=== PATIENT | female | born 1995 ===

== ENCOUNTER 2023-07-01 12:48 | Outpatient (AMB) | payer BC, SELFPAY ==
--- NOTE | 2023-07-01 12:58 | MHC.PC.OV ---
Vital Signs 07/01/23 13:00 Height 5 ft 10 in Weight 156 lb 8 oz BMI 22.5 BP 110/66 Blood Pressure Location Rt brachial Position Sitting Pulse 97 Pulse Source Pulse Oximeter Pulse Oximetry (%) 99 Oxygen Delivery Method Room Air Intake Visit Reasons: Surveillance Analyst Chronic Care F/U ( Allergy Medication) Intake Note: Patient is a new patient here to establish care for Auto immune disease, Atomic disfunction, Chronic Hives, Anxiety and Depress, . Transferring care from Dr Purnima Conde ([place], [place]). Medical records have been requested and have not received. Personal Computer Network Analyst Required: No License Examiner: Not Required per policy Accompanied by: Self / Same As Patient Allergies amoxicillin Allergy (Intermediate, Verified 07/01/23 13:21) Hives Medication List - Last Reconciled 07/01/23 by MATTEO Eid bupropion HCl (Wellbutrin XL) 300 mg PO QAM cetirizine (Zyrtec) 10 mg PO BID PRN famotidine (Pepcid) 20 mg PO BID sertraline 75 mg PO DAILY Tobacco use date assessed: 07/01/23 Dental Screening Dental Screen Date: 07/01/23 Did you have a dental visit in the last 12 months?: No Did you have a dental problem in the last 6 months where you did not have access to dental care?: No Was dental information given to patient?: No (not yet just moved to [facility]) HPI HPI Comments History of Present Illness Details 28-year-old female new patient presents today to establish care. Recently moved from [place] 1 month ago. Past medical history significant for so sjorgrens disease, autonomic dysfunction, anxiety, depression and chronic uticaria Autoimmune disease: + LUCY 1 year ago, refereed to rheumatology, patient reports she had + lip punch biopsy and her simulation engineer was thinking she had sjorgres, patient states she was supposed to go for further testing however she was moving. 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 Autonomic dysfunction problem: DX 2 years ago, patient states used to pass out alot and, states had holter monitor, echocardiogram heart workup came back unremarkable. Peak patient was Recommended to follow high salt diet and increase water intake, compression stockings. Patient states only wears compression socks when working out. Patient reports previously followed by television news reporter Dr. Reddy for chronic hives, states she was recommended to take Zyrtec 10 mg b.i.d. daily as well as Pepcid 20 mg b.i.d.. Patient reports has been stable on this regimen and chronic hives have been well controlled. Referral entered to television news reporter. Anxiety/depression: Patient currently following with therapist as well as medication provider. [facility] Surgical History (Updated 07/01/23 @ 13:12 by NEO Lopez) History of wisdom tooth extraction Family History (Updated 07/01/23 @ 13:35 by MATTEO Eid) Father Fernie's disease Autoimmune urticaria Mother No problems noted. 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 1. Little interest or pleasure in doing things: not at all 2. Feeling down, depressed, or hopeless: not at all (currently on medication) 3. Trouble falling or staying asleep, or sleeping too much: not at all 4. Feeling tired or having little energy: not at all 5. Poor appetite or overeating: not at all 6. Feeling bad about yourself - or that you are a failure or have let yourself or your family down: not at all 7. Trouble concentrating on things, such as reading the newspaper or watching television: not at all 8. Moving or speaking so slowly that other people could have noticed. Or the opposite - being so fidgety or restless that you have been moving around a lot more than usual: not at all 9. Thoughts that you would be better off or of hurting yourself in some way: not at all Total score: 0 Depression Screening Interpretation: Negative 58792 - PHQ-9 Billing: Yes Source: Developed by Drs. Gage Dunn, Tae Ace and colleagues, with an educational evelin from [employer]. Thrive Questionnaire Date Thrive assessed: 07/01/23 I am a: Patient What is your living situation today?: I have a steady place to live Within the past 12 months, did the food you bought not last and you didn't have the money to get more?: Never true Within the past 12 months, did you worry whether your food would run out before you got money to buy more?: Never true Do you have trouble paying for medicines?: No Do you have trouble getting transportation to medical appointments?: No Do you have trouble paying your heating and electricity bill?: No Do you have trouble taking care of your child, family member or friend?: No Do you have trouble with day-to-day activities such as bathing, preparing meals, shopping, managing finances, etc.?: No Are you currently unemployed and looking for a job?: No Are you interested in more education?: No Currently or been in a relationship where the following occur: no concerns reported AUDIT C Alcohol Use Questionnaire (AUDIT-C) 1. How often do you have a drink containing alcohol?: Monthly or less Total Score: 1 RADHA-7 AMB Questionnaire RADHA-7 Date RADHA - 7 assessed: 07/01/23 Feeling nervous, anxious, or on edge: 0 = Not at all (currently on medication) Not being able to stop or control worryin = Not at all Worrying too much about different things: 0 = Not at all Trouble relaxin = Not at all Being so restless that it is hard to sit still: 0 = Not at all Becoming easily annoyed or irritable: 0 = Not at all Feeling afraid as if something awful might happen: 0 = Not at all Total RADHA-7 score (0-4 normal; 5-9 mild; 10-14 moderate; 15-21 severe): 0 Source: Developed by Drs. Gage Dunn, Tae Ace and colleagues, with an educational evelin from [employer]. RADHA-7 Assessment Billing RADHA-7 Assessment Tool: RADHA-7 Assessment 55290 Review of Systems Const Denies chills, Denies fatigue, Denies fever(s) and Denies poor appetite Eyes Denies no additional complaints ENT Reports Normal hearing present Card Denies chest pain, Denies syncope, Denies rapid heart rate and Denies dyspnea Resp Denies cough and Denies dyspnea GI Denies change in stool character, Denies constipation, Denies diarrhea, Denies nausea and Denies vomiting Denies urinary frequency, Denies dysuria and Denies urinary urgency Neuro Reports Normal hearing present, Denies confusion and Denies syncope Psych Denies confusion Endo Denies fatigue Physical exam (Primary Care) Vital Signs: Last Vital Signs Pulse 97 07/01/23 13:00 BP 110/66 07/01/23 13:00 Pulse Ox 99 07/01/23 13:00 Oxygen Delivery Method Room Air 07/01/23 13:00 BMI result Body Mass Index 22.5 Tobacco/Smoking Status: Tobacco use Status Tobacco use date assessed 07/01/23 07/01/23 13:15 Patient Tobacco Use Status Never used Tobacco 07/01/23 13:35 e-Cigarette/Vaping Use Never Used 07/01/23 13:35 PHQ-9: PHQ-9 Score PHQ-9: Total score 0 07/01/23 13:36 Depression Screening Interpretation: Negative Thrive Assessment: Date of Thrive Assessment Date Thrive assessed 07/01/23 07/01/23 13:15 Currently or been in a relationship where the following occur: no concerns reported Const General: No confusion Orientation/consciousness: No confusion HENMT Head: Yes normocephalic and Yes atraumatic Eyes Conjunctivae: conjunctivae normal Chest Chest palpation & inspection: normal inspection of the chest Resp Effort & Inspection: normal respiratory effort Auscultation: clear to auscultation bilaterally, no crackles, no rhonchi and no wheezes Cardio Rate: regular rate Rhythm: regular rhythm Heart sounds: S1 normal heart sound present and S2 normal heart sound present GI Inspection: Yes normal to inspection Neuro General: No confusion Cranial nerves: Yes Normal hearing present Extrem General: No edema Assessment and Plan Assessment & Plan (1) Chronic urticaria: Code(s): L50.8 - Other urticaria Plan: Continue on Zyrtec and Pepcid. Referral placed to television news reporter. (2) Depression: Code(s): F32.A - Depression, unspecified Plan: Continue to follow with therapist and medication provider Continue on Wellbutrin 300 mg q.a.m. and sertraline 75 mg daily. (3) Anxiety: Code(s): F41.9 - Anxiety disorder, unspecified Plan: Continue to follow with psychiatrist and therapist. (4) Hx of Sjogren's disease: Code(s): M35.00 - Sjogren syndrome, unspecified Plan: Referral placed to rheumatology. (5) Autonomic dysfunction: Code(s): G90.9 - Disorder of the autonomic nervous system, unspecified Plan: Continue to follow high salt diet and increase water intake. Continue wear compression stockings. Plan Follow-up in 3 months for complete physical exam. Orders: Orders Complete Blood Count Auto Diff 07/01/23 Z13.0 - Encounter for screening for diseases of the blood and blood-forming organs and certain disorders involving the immune mechanism Comprehensive Met. Panel 07/01/23 Z13.1 - Encounter for screening for diabetes mellitus Cholesterol 07/01/23 Z13.220 - Encounter for screening for lipoid disorders TSH reflex Free T4 07/01/23 Z13.29 - Encounter for screening for other suspected endocrine disorder Referrals Rheumatology Referral R76.8 - Other specified abnormal immunological findings in serum Allergy & Immunology Referral L50.8 - Other urticaria Coding Level of Care Code New Pt Level 4 (49989) Diagnoses Chronic urticaria L50.8 Depression F32.A Anxiety F41.9 Hx of Sjogren's disease M35.00 Autonomic dysfunction G90.9 Additional Codes RADHA-7 Assessment Billing - RADHA-7 Assessment Tool: RADHA-7 Assessment 77130 ([id number])
[2023-07-01 13:00] VITALS: BP 110/66; PULSE 97; O2SAT 99; BMI 22.5
== END 2023-07-01 13:46 | disposition home or self-care (01) ==
PROVIDERS: PCP Nurse Practitioner Family; Visit Provider Nurse Practitioner Family
DX: M35.00 Sjogren syndrome, unspecified (principal); L50.8 Other urticaria; F32.A Depression, unspecified; F41.9 Anxiety disorder, unspecified; G90.9 Disorder of the autonomic nervous system, unspecified
CPT/HCPCS: 99204

== ENCOUNTER 2023-07-01 13:55 | Outpatient (REF) | payer BC, SELFPAY ==
[2023-07-01 14:19] LABS: MANUAL DIFF FLAG NO
[2023-07-01 14:39] LABS: Basophils Percent Auto 0.4 % (0-2); Eosinophils Absolute Auto 0.1 X10*3/uL (0.0-0.4); Eosinophils Percent Auto 1.6 % (0-4); Hematocrit 38.2 % (37.0-47.0); Hemoglobin 12.6 g/dl (12.0-16.0); Imm Gran Abs Auto 0.01 X10*3/uL (0.00-0.03); Imm Gran Pct Auto 0.1 % (0.0-0.4); Lymphocytes Absolute Auto 2.8 X10*3/uL (1.2-4.9); Lymphocytes Percent Auto 40.5 % (20-40); Mean Corpuscular Hemoglobin 28.8 pg (27.0-33.0); Mean Corpuscular Volume 87.4 fL (80.0-98.0); Mean Platelet Volume 9.4 fL (9.4-12.3); Monocytes Absolute Auto 0.8 X10*3/uL (0.1-1.2); Monocytes Percent Auto 10.9 % (2-11); Neutrophils Absolute Auto 3.3 x10*3/uL (2.0-8.3); Neutrophils Percent Auto 46.5 % (45-73); Platelet Count 283 X10*3/uL (160-400); Red Blood Count 4.37 X10*6/uL (4.20-5.50); Red Cell Distribution Width 12.3 % (11.0-16.0)
[2023-07-01 16:11] LABS: Alanine Aminotransferase 15 U/L (0-31); Albumin Level 4.2 g/dL (3.5-5.0); Alkaline Phosphatase 79 U/L (39-117); Anion Gap 8 (12-20); Aspartate Amino Transferase 16 U/L (5-31); Bilirubin Total 0.3 mg/dL (0.0-1.0); Blood Urea Nitrogen 11 mg/dL (9-16); Calcium 9.3 mg/dL (8.4-10.2); Carbon Dioxide 26 mmol/L (22-29); Chloride 108 mmol/L (96-108); Cholesterol 141 mg/dL (<200); Estimated Glomerular Filt Rate > 60; Glucose Random 77 mg/dL (60-115); Potassium 4.2 mmol/L (3.3-5.1); Sodium 138 mmol/L (135-145)
[2023-07-01 16:14] LABS: TSH reflex Free T4 1.32 uIU/mL (0.32-4.0)
== END 2023-07-01 13:56 | disposition home or self-care (01) ==
LOC: HO.LAB 13:55
PROVIDERS: PCP Nurse Practitioner Family; Visit Provider Nurse Practitioner Family
DX: Z13.29 Encounter for screening for other suspected endocrine disorder (principal); Z13.0 Encounter for screening for diseases of the blood and blood-forming organs and certain disorders involving the immune mechanism; Z13.220 Encounter for screening for lipoid disorders; F41.9 Anxiety disorder, unspecified; F32.A Depression, unspecified
CPT/HCPCS: 36415; 80053; 82465; 84443; 85025

== ENCOUNTER 2023-10-01 08:42 | Outpatient (AMB) | payer BC, SELFPAY ==
--- NOTE | 2023-10-01 08:46 | MHC.OFFVIS ---
Intake Vital Signs 10/01/23 08:52 Height 5 ft 10 in Weight 157 lb 10.088 oz BMI 22.6 BP 102/72 Blood Pressure Location Rt brachial Position Sitting Pulse 93 Pulse Source Pulse Oximeter Pulse Oximetry (%) 99 Oxygen Delivery Method Room Air Intake Visit Reasons: abnormal lab Intake Note: New pt presents today for +LUCY consult. Green Prize Packer Required: No Accompanied by: Self / Same As Patient Allergies amoxicillin Allergy (Intermediate, Verified 10/01/23 08:55) Hives Medication List - Last Reconciled 10/01/23 by Laisha Wilder MD bupropion HCl (Wellbutrin XL) 300 mg PO QAM cetirizine (Zyrtec) 10 mg PO BID PRN famotidine (Pepcid) 20 mg PO BID sertraline 75 mg PO DAILY HPI HPI Comments History of Present Illness Details This is a 28-year-old female who presents for evaluation of a positive LUCY. Patient recently moved from [place]. Patient states that for years would have flare-ups of low-grade fevers, generalized fatigue, body aches. These episodes last from 2 weeks to 8 weeks. They happen about 3 times a year. She also states that she has had Raynaud's for many years. She has Raynaud's episodes when she goes outside in the cold. She has to wear gloves sometimes. She denies ever having to go to the hospital for Raynaud's, denies any digital or toe tip ulcers. She has also had dry mouth for some time. She was evaluated by a director of operations in [place]. She was found to have a positive LUCY 1-160 speckled that was negative on repeat. She had comprehensive serology that was negative, lip biopsy showed a focus score of 1. There was no evidence an autoimmune rheumatic disease that was found. She denies any history of DVT/PE. She never attempted . [facility] Surgical History History of wisdom tooth extraction Family History Father Fernie's disease Autoimmune urticaria Mother No problems noted. 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 Cognitive needs: No Hearing needs: No Vision needs: Yes (reading glasses) Female Reproductive History Menstrual Total pregnancies: 0 Review of Systems Const Reports fatigue and Reports fever(s) Eyes Reports dry eyes ENT Reports dry mouth Musc Reports myalgias and Reports arthralgias Psych Reports anxiety Endo Reports fatigue Physical Exam Vital Signs: Last Vital Signs Pulse 93 10/01/23 08:52 BP 102/72 10/01/23 08:52 Pulse Ox 99 10/01/23 08:52 Oxygen Delivery Method Room Air 10/01/23 08:52 BMI result Body Mass Index 22.6 Const General: cooperative, healthy appearing and comfortable Nutritional Appearance: average body habitus Orientation/consciousness: patient oriented x3 Limitations: no limitations HEENT Head: Yes normocephalic and Yes atraumatic Resp Effort & Inspection: normal respiratory effort and able to speak in complete sentences Auscultation: clear to auscultation bilaterally Cardio Rate: regular rate Rhythm: regular rhythm Heart sounds: S1 normal heart sound present and S2 normal heart sound present GI Inspection: No distended Palpation (GI): Soft to palpation and nontender Skin Other: Few superficial bruises on her shins, (according to patient it is from her dog) Neuro General: patient oriented x3 Extrem Other: No active synovitis Nailfold capillaroscopy shows few fingers with parallel hemorrhages, no significant dilation Results Reviewed Results Reviewed: Labs 05/2022? Ferritin 13 (15-204) TSH 1.5 CMP unremarkable CBC unremarkable Labs 02/2022? LUCY 1-160 speckled CRP negative Labs 09/2022? LUCY IFA negative? DsDNA/Scl 70/Cm/PUBLIC ADMINISTRATION PROFESSOR/SSA/SSB/ANCA/MPO/PR3/RF/CCP negative Scleroderma 12 antibodies all negative C3 and C4 normal Urinalysis negative CRP negative? ESR 6 2D echo 01/2022? Normal EF 60-65%? No significant valvular abnormalities? No pericardial effusion? Estimated RVSP 24 mmHg RA pressure 3 mm Hg? Lip biopsy 10/2022? Diagnosis:? Minor salivary gland tissues with a single small focus of live point infiltrate and background mild nonspecific fibrosis.? Overlying squamous mucosa with no significant histopathologic change. Comments:? Multiple deeper results are reviewed.? The findings are equivalent to a focus score of 1 No fungal organisms are identified Assessment & Plan Assessment & Plan (1) Positive LUCY (antinuclear antibody): Code(s): R76.8 - Other specified abnormal immunological findings in serum Plan: This is a 28-year-old female who was referred for evaluation of positive LUCY. Over the years patient would have episodes of fevers, generalized body aches at last 2-8 weeks, these flare-ups occur about 3 times a year. She also has dry mouth. Lip biopsy was done and it showed a focus score of 1 which is not conclusive. She also has history of Raynaud's for many years. On exam she has few parallel hemorrhages on nailfold capillaroscopy. At this point I do not believe patient fulfills criteria for any specific autoimmune rheumatic disease. I advised patient to get blood work done went she feels like she is in a flare and make an appointment 3 weeks afterwards. Follow-up as needed Plan I spent 47 minutes reviewing patient's chart, evaluating patient, ordering diagnostic workup, counseling patient and documenting in the chart Orders: Orders Complement C4 Today R76.8 - Other specified abnormal immunological findings in serum Erythrocyte Sedimentation Rate Today R76.8 - Other specified abnormal immunological findings in serum Protein Creatinine Ratio, Ur Today R76.8 - Other specified abnormal immunological findings in serum Comprehensive Met. Panel Today R76.8 - Other specified abnormal immunological findings in serum Anti DNA DS Antibody Today R76.8 - Other specified abnormal immunological findings in serum Complement C3 Today R76.8 - Other specified abnormal immunological findings in serum UA w Microscopic Today R76.8 - Other specified abnormal immunological findings in serum C Reactive Protein Today R76.8 - Other specified abnormal immunological findings in serum Complete Blood Count Auto Diff Today R76.8 - Other specified abnormal immunological findings in serum Coding Level of Care Code New Pt Level 4 (67405) Diagnoses Positive LUCY (antinuclear antibody) R76.8
[2023-10-01 08:52] VITALS: BP 102/72; PULSE 93; O2SAT 99; BMI 22.6
== END 2023-10-01 10:09 | disposition home or self-care (01) ==
PROVIDERS: PCP Nurse Practitioner Family; Visit Provider Student in an Organized Health Care Education/Training Program
DX: R76.8 Other specified abnormal immunological findings in serum (principal)
CPT/HCPCS: 99204

== ENCOUNTER → 2023-10-01 08:42 | Outpatient (BNVA) | payer BC, SELFPAY | PROVIDERS: PCP Nurse Practitioner Family; Visit Provider Student in an Organized Health Care Education/Training Program ==

== ENCOUNTER 2023-10-24 13:00 | Outpatient (REF) | payer BC, SELFPAY ==
[2023-10-24 13:15] LABS: MANUAL DIFF FLAG NO
[2023-10-24 13:32] LABS: Basophils Absolute Auto 0.1 X10*3/uL (0.0-0.2); Basophils Percent Auto 0.7 % (0-2); Eosinophils Absolute Auto 0.1 X10*3/uL (0.0-0.4); Eosinophils Percent Auto 1.6 % (0-4); Hematocrit 41.5 % (37.0-47.0); Hemoglobin 13.8 g/dl (12.0-16.0); Imm Gran Abs Auto 0.02 X10*3/uL (0.00-0.03); Imm Gran Pct Auto 0.3 % (0.0-0.4); Lymphocytes Absolute Auto 2.8 X10*3/uL (1.2-4.9); Lymphocytes Percent Auto 40.6 % (20-40); Mean Corpuscular HGB Conc 33.3 g/dl (31.0-35.0); Mean Corpuscular Hemoglobin 28.8 pg (27.0-33.0); Mean Corpuscular Volume 86.6 fL (80.0-98.0); Mean Platelet Volume 9.5 fL (9.4-12.3); Monocytes Absolute Auto 0.6 X10*3/uL (0.1-1.2); Monocytes Percent Auto 9.1 % (2-11); Neutrophils Absolute Auto 3.3 x10*3/uL (2.0-8.3); Neutrophils Percent Auto 47.7 % (45-73); Platelet Count 336 X10*3/uL (160-400); Red Blood Count 4.79 X10*6/uL (4.20-5.50); Red Cell Distribution Width 12.6 % (11.0-16.0); White Blood Count 6.9 X10*3/uL (4.8-10.8)
[2023-10-24 14:18] LABS: Erythrocyte Sedimentation Rate 4 MM/HR (0-20)
[2023-10-24 14:31] LABS: Alanine Aminotransferase 16 U/L (0-31); Albumin Level 4.4 g/dL (3.5-5.0); Alkaline Phosphatase 80 U/L (39-117); Anion Gap 10 (12-20); Aspartate Amino Transferase 16 U/L (5-31); Bilirubin Total 0.4 mg/dL (0.0-1.0); Blood Urea Nitrogen 10 mg/dL (9-16); C Reactive Protein < 0.10 mg/dL (< or = 0.50); Calcium 9.4 mg/dL (8.4-10.2); Carbon Dioxide 27 mmol/L (22-29); Chloride 106 mmol/L (96-108); Estimated Glomerular Filt Rate > 60; Glucose Random 77 mg/dL (60-115); Potassium 3.9 mmol/L (3.3-5.1); Sodium 139 mmol/L (135-145); Total Protein 7.7 g/dL (6.5-8.0)
[2023-10-24 14:38] LABS: Appearance Urine Hazy; Color Urine Yellow; Glucose Urine UA Negative (Negative); Leukocyte Esterase Urine Trace (Negative); Nitrite Urine Negative (Negative); Specific Gravity - Urine 1.025 (1.005-1.025); UMIC TRIGGER UA YES; Urine Blood Trace (Negative); Urine Ketones Trace mg/dL (Negative); Urine Protein Trace mg/dL (Neg-Trace)
[2023-10-24 14:50] LABS: RBC Urine 0-2 /HPF (0-2); WBC Urine 0-5 /HPF (0-5)
[2023-10-24 14:51] LABS: Bacteria Urine 4+ (None Seen); Hyaline Casts Urine 0-2 /LPF (0-2)
[2023-10-24 15:34] LABS: Creatinine Urine 436.65 mg/dL; Protein/Creatinine Ratio, Ur 0.05 (<0.2); Total Protein Urine Random 22 mg/dL (<12)
[2023-10-28 10:30] LABS: Anti DNA DS Antibody 1 IU/mL
[2023-10-28 19:17] LABS: Complement C3 76 mg/dL (83-193)
== END 2023-10-24 13:01 | disposition home or self-care (01) ==
LOC: HO.LAB 13:00
PROVIDERS: Visit Provider Student in an Organized Health Care Education/Training Program
DX: R76.8 Other specified abnormal immunological findings in serum (principal)
CPT/HCPCS: 36415; 80053; 81001; 82570; 84156; 85025; 85652; 86140; 86160; 86225